=== PATIENT | male | born 1980 | race Asian ===

== ENCOUNTER 2019-02-18 04:18 | Emergency (ER) | payer MEDICAID ==
--- NOTE | 2019-02-18 04:25 | ED Physician Documentation ---
PD HPI CHEST PAIN - Stated complaint Stated Complaint: SKIPPING HEART - History obtained from History obtained from: Patient - History of Present Illness Timing - onset: How many weeks ago (several weeks of initially feeling heart skipping, and would drink alcohol to have it feel better. Has been drinking regularly for that and also just to drink. Has feeling of heart beating hard and fast often. Denies chest pain nor dyspnea.) Timing - onset during: Rest (Initially he had noted the feeling of skipped beats or palpitations when he was resting. He did find it bothersome. He states he been drinking heavily as well and regularly over the last month or more. He feels that he wants to stop drinking and did stop yesterday and was feeling his heart rate going a bit faster and feeling anxious overnight tonight. He is concerned about liver disease and heart disease. He does have history of some anxiety as well.) Timing - details: Gradual onset, Intermittant Quality: Tightness, Other (feeling of heart rate skipping at times and also feeling fast and pounding at other times. No lightheadedness with it.) Location: Substernal Improved by: No: Rest Worsened by: No: Exertion Associated symptoms: Palpitations. No: Shortness of air, Nausea, Feeling faint / dizzy Recently seen: Not recently seen Review of Systems Constitutional: denies: Fever Nose: denies: Rhinorrhea / runny nose, Congestion Throat: denies: Sore throat Cardiac: reports: Palpitations. denies: Chest pain / pressure Respiratory: denies: Cough GI: denies: Abdominal Pain, Nausea, Vomiting, Diarrhea Skin: denies: Rash, Lesions Neurologic: denies: Near syncope Endocrine: denies: Weight loss, Weight gain, Easy bruising / bleeding PD PAST MEDICAL HISTORY - Past Medical History Cardiovascular: Hypertension (has had high readings in the past, but not been on meds previously.) Respiratory: None Neuro: None Endocrine/Autoimmune: None - Present Medications Home Medications: Ambulatory Orders Medication Instructions Recorded Confirmed LORazepam [Ativan] 1 mg PO Q6H PRN #25 tablet 02/18/19 Metoprolol Tartrate [Lopressor] 25 mg PO DAILY #30 tablet 02/18/19 - Allergies Allergies/Adverse Reactions: Allergies Allergy/AdvReac Type Severity Reaction Status Date / Time No Known Drug Allergies Allergy Verified 02/18/19 04:37 - Living Situation Living Situation: reports: Alone Living Arrangement: reports: At home, Other (he is likely moving to [place] later in this month. ) - Social History Does the pt smoke?: Yes Does the pt drink ETOH?: Yes Does the pt have substance abuse?: No - Family History Family history: reports: Non contributory PD ED PE NORMAL - Vitals Vital signs reviewed: Yes (moderately hypertensive) - General General: Alert and oriented X 3, No acute distress (but is appearing anxious and is some shaky), Well developed/nourished - HEENT HEENT: Pharynx benign - Neck Neck: Supple, no meningeal sign, No adenopathy - Cardiac Cardiac: No murmur, No rub. No: RRR (regular but tachycardic) - Respiratory Respiratory: Clear bilaterally - Abdomen Abdomen: Soft, Non tender - Derm Derm: Normal color, Warm and dry - Extremities Extremities: No deformity, Normal ROM s pain, No edema, No calf tenderness / cord - Neuro Neuro: Alert and oriented X 3, No motor deficit, Normal speech Results - Vitals Vitals: Vital Signs - 24 hr 02/18/19 02/18/19 02/18/19 04:20 04:30 04:40 Temperature 36.0 C L Heart Rate 120 H 118 H 111 H Respiratory 14 20 16 Rate Blood Pressure 150/104 H 149/82 H 143/86 H O2 Saturation 97 97 97 02/18/19 02/18/19 04:45 04:50 Temperature Heart Rate 110 H 93 Respiratory 17 14 Rate Blood Pressure 141/88 H 137/86 H O2 Saturation 98 96 Oxygen O2 Source Room air - EKG (time done) 04:22 Rate: Rate (enter#) (118) Rhythm: Sinus tachycardia [place]: Normal Intervals: Normal [place] QRS: Normal Ischemia: Normal ST segments. No: ST elevation c/w ischemia, ST depression, T wave inversion - Labs Labs: Laboratory Tests 02/18/19 02/18/19 02/18/19 04:30 04:30 04:30 WBC 8.1 RBC 5.37 Hgb 16.2 Hct 48.0 MCV 89.4 MCH 30.2 MCHC 33.8 RDW 12.8 Plt Count 149 MPV 11.6 H Neut # (Auto) 5.9 Lymph # (Auto) 1.5 [place] # (Auto) 0.6 Eos # (Auto) 0.1 Baso # (Auto) 0.1 Absolute Nucleated RBC 0.00 Nucleated RBC % 0.0 Sodium 139 Potassium 3.4 L Chloride 99 L Carbon Dioxide 19 L Anion Gap 21.0 H BUN 17 Creatinine 1.2 Estimated GFR (MDRD) 67 L Glucose 106 H Calcium 9.4 Magnesium 2.2 Total Bilirubin 2.0 H AST 30 ALT 24 Alkaline Phosphatase 78 B-Natriuretic Peptide Total Protein 7.6 Albumin 4.9 Globulin 2.7 Albumin/Globulin Ratio 1.8 Lipase 24 TSH Ethyl Alcohol 7.0 02/18/19 02/18/19 04:30 04:30 WBC RBC Hgb Hct MCV MCH MCHC RDW Plt Count MPV Neut # (Auto) Lymph # (Auto) [place] # (Auto) Eos # (Auto) Baso # (Auto) Absolute Nucleated RBC Nucleated RBC % Sodium Potassium Chloride Carbon Dioxide Anion Gap BUN Creatinine Estimated GFR (MDRD) Glucose Calcium Magnesium Total Bilirubin AST ALT Alkaline Phosphatase B-Natriuretic Peptide 22 Total Protein Albumin Globulin Albumin/Globulin Ratio Lipase TSH 2.86 Ethyl Alcohol - Rads (name of study) chest xray Radiology: Prelim report reviewed (no acute process), See rad report PD MEDICAL DECISION MAKING - ED course Complexity details: re-evaluated patient (He is feeling more comfortable with his blood pressure down and heart rate below 100 after some Ativan for withdrawal and metoprolol. He is feeling much less anxious. His blood test did not show any signs of thyroid disorder nor significant liver disease. His electrolytes show slightly low potassium. There is no signs of heart failure and the EKG does not suggest any pericarditis or cardiomyopathy. At this point I think he had benign palpitations and had been anxious about it and tonight is having basically some alcohol withdrawal as well.), considered differential (His description of skipping heartbeats when he is feeling rested sounds like benign palpitations. Currently he is tachycardic and hypertensive but stemming from some alcohol withdrawal. He states he would like to stop drinking. We can provide him some IV fluids as well as Ativan and they give a dose of metoprolol to decrease heart rate and blood pressure.), d/w patient Departure - Departure Disposition: 01 Home, Self Care Clinical Impression: Heart palpitations Hypertension Qualifiers: Hypertension type: unspecified Qualified Code(s): I10 - Essential (primary) hypertension Alcohol withdrawal Qualifiers: Complication of substance-induced condition: uncomplicated Qualified Code(s): F10.230 - Alcohol dependence with withdrawal, uncomplicated Condition: Stable Record reviewed to determine appropriate education?: Yes Instructions: ED Withdrawal Alcohol, ED Palpitations Follow-Up: [facility] [Provider Group] Prescriptions: LORazepam [Ativan] 1 mg PO Q6H PRN #25 tablet PRN Reason: Alcohol Withdrawal Metoprolol Tartrate [Lopressor] 25 mg PO DAILY #30 tablet Comments: I believe your heart palpitations you are feeling were benign. Your blood pressure was a bit elevated and your heart rate was fast which both can stem from some alcohol withdrawal. However we can start you on a low-dose blood pressure medicine which will help with heart palpitations and keep a more regular so it is less bothersome. This would be metoprolol 25 mg daily. As well I will prescribe Lorazepam to use every 6 hours if needed for alcohol withdrawal symptoms of shakiness fast heart rate or nausea. Do not drink alcohol and taper down the use of the Lorazepam over several days to week as your body adjusts to no alcohol. Stay well-hydrated otherwise. Follow-up with the primary care in the near future for recheck and any adjusting or renewal of your medications as needed.
[2019-02-18] MEDS ORDERED: LORazepam 2 MG/ML VIAL IVP STA (04:37)
[2019-02-18] MEDS ORDERED: METOPROLOL 5 MG/5 ML VIAL IVP STA (04:37)
[2019-02-18] MEDS ORDERED: SODIUM CHLORIDE 0.9% 1,000 ML IV ONE (04:37)
[2019-02-18 04:39] LABS: BASOPHILS # (AUTO) 0.1 10^3/uL (0.0-0.1); BASOPHILS % (AUTO) 0.6 %; EOSINOPHILS # (AUTO) 0.1 10^3/uL (0.0-0.7); EOSINOPHILS % (AUTO) 0.7 %; HGB - HEMOGLOBIN 16.2 g/dL (14.0-18.0); LYMPHOCYTES # (AUTO) 1.5 10^3/uL (1.5-3.5); LYMPHOCYTES % (AUTO) 18.1 %; MEAN CORPUSCULAR HEMOGLOBIN 30.2 pg (27.0-31.0); MEAN CORPUSCULAR HGB CONC 33.8 g/dL (32.0-36.0); MEAN CORPUSCULAR VOLUME 89.4 fL (80.0-94.0); MEAN PLATELET VOLUME 11.6 fL (7.4-11.4); MONOCYTES # (AUTO) 0.6 10^3/uL (0.0-1.0); MONOCYTES % (AUTO) 7.2 %; NEUTROPHILS # (AUTO) 5.9 10^3/uL (1.5-6.6); NEUTROPHILS % (AUTO) 73.2 %; PLT - PLATELET COUNT 149 10^3/uL (130-450); RED BLOOD COUNT 5.37 10^6/uL (4.70-6.10); RED CELL DISTRIBUTION WIDTH 12.8 % (12.0-15.0); WHITE BLOOD COUNT 8.1 x10^3/uL (4.8-10.8)
[2019-02-18 04:51] LABS: ALBUMIN 4.9 g/dL (3.2-5.5); ALBUMIN/GLOBULIN RATIO 1.8 (1.0-2.2); CALCIUM 9.4 mg/dL (8.5-10.3); CREATININE 1.2 mg/dL (0.6-1.2); TOTAL PROTEIN 7.6 g/dL (6.7-8.2)
--- NOTE | 2019-02-18 05:02 | XRAY Report ---
Reason: fast heart rate Procedure Date: 02/18/2019 Accession Number: [id number] / [id number] Procedure: XR - Chest 1 View X-Ray CPT Code: 91644 FULL RESULT: EXAM: CHEST RADIOGRAPHY EXAM DATE: 02/18/2019 04:52 AM. CLINICAL HISTORY: Fast heart rate. COMPARISON: None. TECHNIQUE: 1 view. FINDINGS: Lungs/Pleura: No focal opacities evident. No pleural effusion. No pneumothorax. Mediastinum: Within exam limitations, the cardiomediastinal contour is normal. Other: None. IMPRESSION: Normal single view chest. [facility]
[2019-02-18] MEDS ORDERED: POTASSIUM CHLORIDE 20 MEQ TABLET PO ONE (05:23)
[2019-02-18] MEDS ORDERED: POTASSIUM CHLOR 10 MEQ/100 ML 10 MEQ/100 ML BAG IV ONE (05:23)
[2019-02-18 05:54] LABS: MUDS CUTOFF CONCENTRATIONS CUTOFF CONC BELOW:
[2019-02-18 06:08] LABS: AMPHETAMINE SCREEN,URINE NEGATIVE (NEGATIVE); BENZODIAZEPINES SCREEN, URINE NEGATIVE (NEGATIVE); COCAINE SCREEN URINE NEGATIVE (NEGATIVE); METHADONE SCREEN, URINE NEGATIVE (NEGATIVE); METHAMPHETAMINES SCREEN, URINE NEGATIVE (NEGATIVE); OPIATE SCREEN, URINE NEGATIVE (NEGATIVE); OXYCODONE SCREEN, URINE NEGATIVE (NEGATIVE); PROPOXYPHENE SCREEN, URINE NEGATIVE (NEGATIVE); TRICYCLIC ANTIDEPRESSANT,URINE NEGATIVE (NEGATIVE)
[2019-02-18 07:08] VITALS: BP 127/92
== END 2019-02-18 07:08 | disposition home or self-care (01) ==
LOC: ED 04:18
DX: R00.2 Palpitations (principal); R00.0 Tachycardia, unspecified; I10 Essential (primary) hypertension; F10.230 Alcohol dependence with withdrawal, uncomplicated; F41.9 Anxiety disorder, unspecified; F17.200 Nicotine dependence, unspecified, uncomplicated
CPT/HCPCS: 36415; 71045; 80053; 80306; 80320; 83690; 83735; 83880; 84443; 85025; 93005; 96361; 96365; 96375; 99284; A9270; J2060; 84484